=== PATIENT | male | born 1995 | race Asian ===

== ENCOUNTER 2019-11-02 19:11 | Emergency (ER) | payer SELFPAY ==
[~2019-11-02] VITALS: Ht 162.6 cm; Wt 75.0 kg
[~2019-11-02 19:11] MED LIST: ACET-784 PO
[2019-11-02 19:37] VITALS: BP 132/88
[2019-11-02] MEDS ORDERED: CIPROFLOXACIN HCL 250 MG TABLET PO ONE (20:00)
[2019-11-02] MEDS ORDERED: PERTUSS(ACELL),DIPH,TET VAC/PF 0.5 ML VIAL IM ONE (20:00)
== END 2019-11-02 20:14 | disposition home or self-care (01) ==
LOC: EMS 19:12
DX: S91.111A Laceration without foreign body of right great toe without damage to nail, initial encounter (principal); W22.8XXA Striking against or struck by other objects, initial encounter; Y93.89 Activity, other specified; Y92.89 Other specified places as the place of occurrence of the external cause; Y99.8 Other external cause status
CPT/HCPCS: 12001; 90471; 90715

== ENCOUNTER 2022-01-09 04:18 | Emergency (ER) | payer OTHER ==
[~2022-01-09] VITALS: Ht 162.6 cm; Wt 88.6 kg
[2022-01-09 04:42] LABS: COVID AG,FIA SOURCE NASAL SWAB
[2022-01-09 04:57] LABS: RAPID GROUP A STREP NEGATIVE (NEGATIVE)
[2022-01-09 05:05] LABS: INFLUENZA TYPE A NEGATIVE FOR TYPE A (NEGATIVE); INFLUENZA TYPE B NEGATIVE FOR TYPE B (NEGATIVE)
[2022-01-09 06:28] VITALS: BP 137/87
== END 2022-01-09 06:29 | disposition home or self-care (01) ==
LOC: EMS 04:22
DX: U07.1 COVID-19 (principal)
CPT/HCPCS: 87430; 87804; 99283